=== PATIENT | female | born 1955 | race Caucasian/White ===

== ENCOUNTER 2019-04-18 20:04 | Emergency (ER) | payer MEDICARE ==
[~2019-04-18] VITALS: Ht 147.3 cm; Wt 51.3 kg
[2019-04-18] MEDS ORDERED: ONDANSETRON HCL INJ 2MG/ML 2ML 2 MG/ML VIAL IV ONE (20:18)
[2019-04-18] MEDS ORDERED: SODIUM CHLORIDE 0.9% 1000ML 1,000 ML IV STA (20:18)
[2019-04-18] MEDS ORDERED: PANTOPRAZOLE 40 MG 10ML VIAL IV ONE (20:18)
[2019-04-18] MEDS ORDERED: ONDANSETRON HCL INJ 2MG/ML 2ML 2 MG/ML VIAL ONE (20:27)
[2019-04-18] MEDS ORDERED: DIATRIZOATE MEGL/DIATRIZOA SOD 30 ML BTL PO ONE (20:27)
[2019-04-18 20:40] LABS: BASOPHILS % 0.2 % (0.0-1.0); HEMATOCRIT 37.8 % (34.2-44.1); HEMOGLOBIN 12.9 g/dL (12.0-16.0); LYMPHOCYTES % 6.3 % (18.0-39.1); MEAN CORPUSCULAR HEMOGLOBIN 30.4 pg (28-32); MEAN CORPUSCULAR HGB CONC 34.1 g/dL (31-35); MEAN CORPUSCULAR VOLUME 89.2 fL (81-99); MONOCYTES # (AUTO) 0.4 (0.2-0.8); MONOCYTES % 2.8 % (4.4-11.3); NEUTROPHILS # (AUTO) 14.4 (2.1-6.9); NEUTROPHILS % 90.3 % (38.7-80.0); PLATELET COUNT 340 x10e3/uL (140-360); RED BLOOD COUNT 4.24 x10e6/uL (3.6-5.1); RED CELL DISTRIBUTION WIDTH 12.7 % (11.7-14.4)
[2019-04-18 20:50] LABS: INR 0.96; PROTHROMBIN TIME 13.3 seconds (11.9-14.5)
[2019-04-18 20:58] LABS: AMYLASE 107 U/L (25-125); LIPASE 5 U/L (8-78)
[2019-04-18 21:00] LABS: ALBUMIN 4.3 g/dL (3.5-5.0); ALBUMIN/GLOBULIN RATIO 1.1 (0.8-2.0); ANION GAP 19.2 mmol/L (8-16); CALCIUM 10.8 mg/dL (8.4-10.2); CREATININE, SERUM 1.33 mg/dL (0.57-1.11); POTASSIUM 4.2 mmol/L (3.5-5.1)
[2019-04-18 21:21] LABS: BILIRUBIN,URINE SMALL (NEGATIVE); CLARITY,URINE SL CLOUDY (CLEAR); COLOR,URINE YELLOW (YELLOW); KETONES,URINE 1+ (NEGATIVE); LEUKOCYTE ESTERASE ,URINE NEGATIVE (NEGATIVE); NITRITE,URINE NEGATIVE (NEGATIVE); URINE UROBILINOGEN 0.2 mg/dL (0.2 - 1)
[2019-04-18 21:22] LABS: PROTEIN,URINE DIPSTICK 2+ (NEGATIVE)
--- NOTE | 2019-04-18 21:24 | Diagnostic Imaging Report ---
EXAMINATION: CHEST SINGLE (PORTABLE) INDICATION: ^HURTS TO BREATH ^[id number] ^2034 ^Y COMPARISON: None FINDINGS: AP view TUBES and LINES: None. LUNGS: Lungs are well inflated. There is no evidence of pneumonia or pulmonary edema. PLEURA: No pleural effusion or pneumothorax. HEART AND MEDIASTINUM: The cardiomediastinal silhouette is unremarkable. BONES AND SOFT TISSUES: No acute osseous lesion. Soft tissues are unremarkable. UPPER ABDOMEN: No free air under the diaphragm. IMPRESSION: No acute thoracic abnormality. Signed by: Dr. Phani Lacy MD on 04/18/2019 9:20 PM
[2019-04-18 21:34] LABS: AMORPHOUS SEDIMENT,URINE MODERATE (FEW); BACTERIA,URINE MODERATE /HPF; EPITHELIAL CELLS,URINE MODERATE /LPF
--- NOTE | 2019-04-18 21:50 | Diagnostic Imaging Report ---
EXAM: CT Abdomen and Pelvis WITHOUT contrast INDICATION: ^ABD PAIN/VOMITING S/P COLONOSCOPY THIS AM ^[id number] ^2123 ^Y COMPARISON: None. TECHNIQUE: Abdomen and pelvis were scanned utilizing a multidetector helical scanner from the lung base to the pubic symphysis without administration of IV contrast. Absence of intravenous contrast decreases sensitivity for detection of focal lesions and vascular pathology. Coronal and sagittal reformations were obtained. Routine protocol was performed. IV CONTRAST: None ORAL CONTRAST: None. COMPLICATIONS: None RADIATION DOSE: Total DLP: 209.04 mGy*cm Estimated effective dose: (DLP x 0.015 x size factor) mSv CTDIvol has been reviewed. It is below the limits set by the Radiation Protocol Committee (RPC). FINDINGS: LINES and TUBES: None. LOWER THORAX: Mild mitral valve calcification. Otherwise, unremarkable. HEPATOBILIARY: Unenhanced liver is unremarkable. No biliary ductal dilation. GALLBLADDER: No radio-opaque stones or sludge. No wall thickening. SPLEEN: No splenomegaly. PANCREAS: No focal masses or ductal dilatation. ADRENALS: No adrenal nodules KIDNEYS/URETERS: No hydronephrosis. Limited for evaluation of renal parenchyma without intravenous contrast. No stones. GI TRACT: No abnormal distention, wall thickening, or evidence of bowel obstruction. Hyperdense ingested material limiting gastric fundus and proximal duodenum. Surgical clips is seen within colon at hepatic flexure. Appendix is normal. PELVIC ORGANS/BLADDER: Calcified uterine fibroids. Bladder is collapsed, limiting evaluation. LYMPH NODES: No lymphadenopathy. VESSELS: Mild aortoiliac atherosclerotic disease. PERITONEUM / RETROPERITONEUM: No free air or fluid. BONES: Unremarkable. SOFT TISSUES: Unremarkable. IMPRESSION: 1. No definite evidence of acute inflammatory process in the abdomen/pelvis, considering limitations of unenhanced study. 2. No pneumoperitoneum to suggest bowel perforation. 3. Myomatous uterus. Signed by: Dr. Phani Lacy MD on 04/18/2019 9:47 PM
[2019-04-18] MEDS ORDERED: HYOSCYAMINE SULFATE 0.5 MG/ML INJ IV ONE (22:15)
[2019-04-18] MEDS ORDERED: HYOSCYAMINE 0.125 MG TAB PO ONE (22:30)
[2019-04-18] MEDS ORDERED: PROMETHAZINE HCL (IM) 25 MG/ML VIAL IM ONE (22:45)
[2019-04-18] MEDS ORDERED: MORPHINE SULFATE 2 MG/ML SYR 1ML IV STA (23:04)
[2019-04-19 00:13] VITALS: BP 110/63
== END 2019-04-19 00:31 | disposition home or self-care (01) ==
LOC: ER 20:04
DX: R10.13 Epigastric pain (principal); R11.2 Nausea with vomiting, unspecified; K29.00 Acute gastritis without bleeding
CPT/HCPCS: 36415; 71045; 74176; 80053; 81001; 82150; 82550; 82553; 83690; 84484; 85025; 85610; 85730; 93005; 99283; C9113; J2270; J2405; J2550; J7030

== ENCOUNTER → 2021-01-08 | Day surgery (SDC) | payer OTHER ==
[~2021-01-08] VITALS: Ht 147.3 cm; Wt 54.4 kg
[2021-01-08] VITALS (9 sets, daily range): BP systolic 151–180; BP diastolic 63–81
[~2021-01-08] MED LIST: ALPRAZOLAM 0.5 MG TAB ONE; ATORVASTATIN CA20 MG PO; DIPHENHYDRAMINE HCL 25 MG CAP ONE; ENTRESTO 24 MG1 EACH PO; FENTANYL CITRATE/PF 100MCG/2 ML INJ ONE; HEPARIN SOD/SOD CHLORIDE 2,000 ML ONE; IOPAMIDOL 370 MG/ML 200 ML INFUS..BTL INJ ONE; LEVEMIR FL100 UNIT/1 SC; LIDOCAINE HCL 2% LOCAL 20 ML VIAL ONE; METOPROLOL SUCC25 MG PO; MIDAZOLAM HCL 2 MG/2 ML VIAL ONE; NEURONTIN100 MG PO; SERTRALINE HCL50 MG PO; SODIUM CHLORIDE 0.9% 1000ML 1,000 ML ONE
== END | disposition home or self-care (01) ==
LOC: CATH LAB 14:04
PROVIDERS: ATTEND Internal Medicine Interventional Cardiology
DX: I25.118 Atherosclerotic heart disease of native coronary artery with other forms of angina pectoris (principal); I50.23 Acute on chronic systolic (congestive) heart failure; E11.9 Type 2 diabetes mellitus without complications; Z88.8 Allergy status to other drugs, medicaments and biological substances; Z79.4 Long term (current) use of insulin
CPT/HCPCS: 76937; 93458; 99152; C1887; J2001; J2250; J3010; J7030; Q9967

== ENCOUNTER 2021-10-13 16:23 | Emergency (ER) | payer OTHER ==
[~2021-10-13] VITALS: Ht 147.3 cm; Wt 54.4 kg
[~2021-10-13 16:23] MED LIST changes: -ALPRAZOLAM 0.5 MG TAB ONE; -DIPHENHYDRAMINE HCL 25 MG CAP ONE; -FENTANYL CITRATE/PF 100MCG/2 ML INJ ONE; -HEPARIN SOD/SOD CHLORIDE 2,000 ML ONE; -IOPAMIDOL 370 MG/ML 200 ML INFUS..BTL INJ ONE; -LIDOCAINE HCL 2% LOCAL 20 ML VIAL ONE; -MIDAZOLAM HCL 2 MG/2 ML VIAL ONE; -SODIUM CHLORIDE 0.9% 1000ML 1,000 ML ONE
[2021-10-13] MEDS ORDERED: LACTATED RINGER'S 250 ML INJ STA (16:45)
[2021-10-13] MEDS ORDERED: FAMOTIDINE 20 MG/2 ML VIAL IV NR (16:45)
[2021-10-13] MEDS ORDERED: ONDANSETRON HCL INJ 2MG/ML 2ML 2 MG/ML VIAL IV NR (16:45)
[2021-10-13] MEDS ORDERED: DONNATAL/LIDOCAINE/MAALOX 30 ML SUSP PO NR (17:00)
[2021-10-13 17:43] LABS: BASOPHILS % 0.1 % (0.0-1.0); HEMATOCRIT 42.7 % (34.2-44.1); HEMOGLOBIN 13.5 g/dL (12.0-16.0); LYMPHOCYTES # (AUTO) 0.5 (1.0-3.2); MEAN CORPUSCULAR HEMOGLOBIN 27.4 pg (28-32); MEAN CORPUSCULAR HGB CONC 31.6 g/dL (31-35); MEAN CORPUSCULAR VOLUME 86.6 fL (81-99); MONOCYTES # (AUTO) 0.3 (0.2-0.8); NEUTROPHILS # (AUTO) 8.8 (2.1-6.9); NEUTROPHILS % 91.5 % (38.7-80.0); PLATELET COUNT 239 x10e3/uL (140-360); RED BLOOD COUNT 4.93 x10e6/uL (3.6-5.1)
[2021-10-13 17:49] LABS: CLARITY,URINE SL CLOUDY (CLEAR); COLOR,URINE YELLOW (YELLOW); LEUKOCYTE ESTERASE ,URINE NEGATIVE (NEGATIVE); NITRITE,URINE NEGATIVE (NEGATIVE)
[2021-10-13 17:50] LABS: KETONES,URINE TRACE (NEGATIVE); PROTEIN,URINE DIPSTICK >=300 (NEGATIVE); URINE UROBILINOGEN 0.2 mg/dL (0.2 - 1)
[2021-10-13 17:55] LABS: BACTERIA,URINE MODERATE /HPF; EPITHELIAL CELLS,URINE MODERATE /LPF; WBC,URINE (MAN) 0-5 /HPF (0-5)
[2021-10-13 17:56] LABS: HYALINE CASTS 0-1 (0-1); MUCUS,URINE FEW (RARE); TRANSITIONAL EPI CELLS,URINE FEW
[2021-10-13] MEDS ORDERED: METOCLOPRAMIDE HCL 10 MG/2ML VIAL IV ONE (18:15)
[2021-10-13 18:24] LABS: ALBUMIN 3.4 g/dL (3.5-5.0); ANION GAP 17.6 mmol/L (8-16); CALCIUM 9.1 mg/dL (8.4-10.2); CREATININE, SERUM 2.74 mg/dL (0.57-1.11); POTASSIUM 3.6 mmol/L (3.5-5.1)
[2021-10-13] MEDS ORDERED: ONDANSETRON ODT4 MG PO (19:35)
== END 2021-10-13 19:35 | disposition home or self-care (01) ==
LOC: ER 16:26
DX: R11.2 Nausea with vomiting, unspecified (principal); N18.9 Chronic kidney disease, unspecified; E11.65 Type 2 diabetes mellitus with hyperglycemia; I50.9 Heart failure, unspecified; R10.9 Unspecified abdominal pain; I10 Essential (primary) hypertension; E78.5 Hyperlipidemia, unspecified; K21.9 Gastro-esophageal reflux disease without esophagitis; R94.31 Abnormal electrocardiogram [ECG] [EKG]
CPT/HCPCS: 36415; 80053; 81001; 83690; 83880; 84484; 85025; 93005; 99284; J2405; J2765; J7121

== ENCOUNTER 2022-09-14 12:19 | Inpatient (IN) | payer OTHER ==
[~2022-09-14] VITALS: Ht 147.3 cm; Wt 51.3 kg
[~2022-09-14 12:19] MED LIST changes: +BUMETANIDE1 MG PO; +IMODIUM2 MG PO; +LYRICA75 MG PO; +METOLAZONE5 MG PO; +ONDANSETRON ODT4 MG PO; +VUMERITY231 MG
[2022-09-14 14:47] LABS: BASOPHILS % 0.2 % (0.0-1.0); HEMATOCRIT 48.7 % (34.2-44.1); HEMOGLOBIN 15.9 g/dL (12.0-16.0); LYMPHOCYTES # (AUTO) 0.4 (1.0-3.2); LYMPHOCYTES % 3.4 % (18.0-39.1); MEAN CORPUSCULAR HEMOGLOBIN 26.4 pg (28-32); MEAN CORPUSCULAR HGB CONC 32.6 g/dL (31-35); MEAN CORPUSCULAR VOLUME 80.9 fL (81-99); MONOCYTES # (AUTO) 0.8 (0.2-0.8); MONOCYTES % 7.1 % (4.4-11.3); NEUTROPHILS # (AUTO) 10.3 (2.1-6.9); NEUTROPHILS % 88.6 % (38.7-80.0); PLATELET COUNT 193 x10e3/uL (140-360); RED BLOOD COUNT 6.02 x10e6/uL (3.6-5.1); RED CELL DISTRIBUTION WIDTH 19.3 % (11.7-14.4)
[2022-09-14 14:58] LABS: INR 1.16
[2022-09-14 14:59] LABS: PARTIAL THROMBOPLASTIN TIME 26.8 seconds (23.8-35.5)
[2022-09-14 15:04] LABS: ALBUMIN 3.2 g/dL (3.5-5.0); ALBUMIN/GLOBULIN RATIO 0.9 (0.8-2.0); ALKALINE PHOSPHATASE 144 IU/L (40-150); ANION GAP 22.1 mmol/L (8-16); BLOOD UREA NITROGEN 86 mg/dL (7-26); BUN/CREATININE RATIO 23 (6-25); CALCIUM 9.1 mg/dL (8.4-10.2); CARBON DIOXIDE 25 mmol/L (22-29); CHLORIDE 97 mmol/L (98-107); CREATINE KINASE 133 IU/L (29-168); CREATININE, SERUM 3.82 mg/dL (0.57-1.11); GLUCOSE 140 mg/dL (74-118); POTASSIUM 4.1 mmol/L (3.5-5.1); SODIUM 140 mmol/L (136-145)
[2022-09-14 15:22] LABS: ALANINE AMINOTRANSFERASE < 6 IU/L (0-55)
[2022-09-14 16:17] LABS: CLARITY,URINE CLEAR (CLEAR); COLOR,URINE YELLOW (YELLOW)
[2022-09-14 16:18] LABS: KETONES,URINE NEGATIVE (NEGATIVE); LEUKOCYTE ESTERASE ,URINE NEGATIVE (NEGATIVE); NITRITE,URINE NEGATIVE (NEGATIVE); PROTEIN,URINE DIPSTICK >=300 (NEGATIVE); URINE UROBILINOGEN 0.2 mg/dL (0.2 - 1)
[2022-09-14] MEDS: ONDANSETRON HCL INJ 2MG/ML 2ML 2 MG/ML VIAL IV PRN (16:25)
[2022-09-14 16:26] LABS: AMORPHOUS SEDIMENT,URINE MODERATE (FEW); BACTERIA,URINE FEW /HPF; EPITHELIAL CELLS,URINE FEW /LPF; HYALINE CASTS 0-1 (0-1); RBC,URINE 0-5 /HPF (0-5); WBC,URINE (MAN) 0-5 /HPF (0-5)
[2022-09-14] MEDS ORDERED: FUROSEMIDE INJ 10 MG/ML 4 ML VIAL IV ONE (17:30)
[2022-09-14 20:39] LABS: CREATINE KINASE MB 4.4 ng/mL (0-5.0)
[2022-09-15] VITALS (7 sets, daily range): BP systolic 122–148; BP diastolic 31–83
[2022-09-15 02:12] LABS: CREATINE KINASE MB 3.9 ng/mL (0-5.0)
[2022-09-15 06:31] LABS: BASOPHILS % 0.2 % (0.0-1.0); EOSINOPHILS % 0.1 % (0.0-6.0); HEMATOCRIT 41.8 % (34.2-44.1); HEMOGLOBIN 15.2 g/dL (12.0-16.0); LYMPHOCYTES # (AUTO) 0.4 (1.0-3.2); LYMPHOCYTES % 3.7 % (18.0-39.1); MEAN CORPUSCULAR HEMOGLOBIN 30.3 pg (28-32); MEAN CORPUSCULAR HGB CONC 36.4 g/dL (31-35); MEAN CORPUSCULAR VOLUME 83.3 fL (81-99); MONOCYTES # (AUTO) 0.9 (0.2-0.8); MONOCYTES % 7.1 % (4.4-11.3); NEUTROPHILS # (AUTO) 10.7 (2.1-6.9); NEUTROPHILS % 88.4 % (38.7-80.0); PLATELET COUNT 175 x10e3/uL (140-360); RED BLOOD COUNT 5.02 x10e6/uL (3.6-5.1); RED CELL DISTRIBUTION WIDTH 23.3 % (11.7-14.4)
[2022-09-15 06:54] LABS: ALBUMIN 2.4 g/dL (3.5-5.0); ALBUMIN/GLOBULIN RATIO 0.8 (0.8-2.0); ALKALINE PHOSPHATASE 114 IU/L (40-150); ANION GAP 18.6 mmol/L (8-16); BLOOD UREA NITROGEN 92 mg/dL (7-26); BUN/CREATININE RATIO 25 (6-25); CALCIUM 8.5 mg/dL (8.4-10.2); CARBON DIOXIDE 26 mmol/L (22-29); CHLORIDE 98 mmol/L (98-107); GLUCOSE 108 mg/dL (74-118); POTASSIUM 3.6 mmol/L (3.5-5.1); SODIUM 139 mmol/L (136-145)
[2022-09-15 06:55] LABS: ALANINE AMINOTRANSFERASE < 6 IU/L (0-55)
[2022-09-15] MEDS ORDERED: DEXTROSE 50% SYRINGE 50 ML IV PRN (08:30)
[2022-09-15] MEDS ORDERED: FUROSEMIDE INJ 10 MG/ML 4 ML VIAL IV SCH (09:00)
[2022-09-15] MEDS ORDERED: PREGABALIN 75 MG CAP PO SCH (09:00)
[2022-09-15 09:40] LABS: CREATINE KINASE MB 4.8 ng/mL (0-5.0)
[2022-09-15] MEDS ORDERED: EPOETIN ALFA-EPBX 10,000 UNIT/ML VIAL SC ONE (10:30)
[2022-09-15] MEDS ORDERED: IRON SUCROSE 100 MG in SODIUM CHLORIDE 0.9% 100 ML IV SCH (10:30)
[2022-09-15 10:41] LABS: % IRON SATURATION 17 % (15-50); IRON 49 ug/dL (50-170); TOTAL IRON BINDING CAPACITY 287 ug/dL (261-478); TRANSFERRIN 205 mg/dL (180-382)
[2022-09-15] MEDS: METOPROLOL SUCCINATE 25 MG TAB XL PO SCH (10:58)
[2022-09-15] MEDS: SERTRALINE HCL 50 MG TAB PO SCH (10:58)
[2022-09-15] MEDS: INSULIN LISPRO 100 UNIT/1 ML 3ML VIAL SQ SCH ×3 (11:28→21:50)
[2022-09-15] MEDS: ONDANSETRON HCL INJ 2MG/ML 2ML 2 MG/ML VIAL IV PRN (21:41)
[2022-09-15] MEDS: BUMETANIDE INJ 0.25MG/ML 4ML VIAL IV SCH (21:41)
[2022-09-16] VITALS (7 sets, daily range): BP systolic 101–129; BP diastolic 73–82
[2022-09-16] MEDS: ONDANSETRON HCL INJ 2MG/ML 2ML 2 MG/ML VIAL IV PRN ×3 (01:26→15:18)
[2022-09-16 05:23] LABS: ANION GAP 17.3 mmol/L (8-16); CALCIUM 8.1 mg/dL (8.4-10.2); CREATININE, SERUM 3.63 mg/dL (0.57-1.11); POTASSIUM 3.3 mmol/L (3.5-5.1)
[2022-09-16] MEDS: INSULIN LISPRO 100 UNIT/1 ML 3ML VIAL SQ SCH ×5 (07:30→22:46)
[2022-09-16] MEDS: BUMETANIDE INJ 0.25MG/ML 4ML VIAL IV SCH ×2 (08:35→21:56)
[2022-09-16] MEDS: SERTRALINE HCL 50 MG TAB PO SCH (08:35)
[2022-09-16] MEDS: METOPROLOL SUCCINATE 25 MG TAB XL PO SCH (08:35)
[2022-09-16] MEDS ORDERED: SIMETHICONE 80 MG CHEW PO PRN (13:30)
[2022-09-16] MEDS ORDERED: MAGNESIUM/ALUMINUM/SIMETHICONE 30 ML UDC PO PRN (13:30)
[2022-09-16] MEDS ORDERED: IOPAMIDOL 370 MG/ML 100 ML INFUS..BTL INJ ONE (15:12)
[2022-09-17] VITALS (7 sets, daily range): BP systolic 89–111; BP diastolic 73–80
[2022-09-17 04:37] LABS: BASOPHILS % 0.1 % (0.0-1.0); HEMATOCRIT 41.8 % (34.2-44.1); HEMOGLOBIN 13.8 g/dL (12.0-16.0); LYMPHOCYTES # (AUTO) 0.3 (1.0-3.2); LYMPHOCYTES % 2.8 % (18.0-39.1); MEAN CORPUSCULAR HEMOGLOBIN 26.7 pg (28-32); MEAN CORPUSCULAR VOLUME 80.9 fL (81-99); MONOCYTES # (AUTO) 0.7 (0.2-0.8); MONOCYTES % 6.9 % (4.4-11.3); NEUTROPHILS # (AUTO) 9.1 (2.1-6.9); NEUTROPHILS % 89.7 % (38.7-80.0); PLATELET COUNT 133 x10e3/uL (140-360); RED BLOOD COUNT 5.17 x10e6/uL (3.6-5.1); RED CELL DISTRIBUTION WIDTH 17.9 % (11.7-14.4)
[2022-09-17 04:49] LABS: ANION GAP 14.8 mmol/L (8-16); CALCIUM 7.6 mg/dL (8.4-10.2); CREATININE, SERUM 3.53 mg/dL (0.57-1.11)
[2022-09-17 04:50] LABS: POTASSIUM 2.8 mmol/L (3.5-5.1)
[2022-09-17] MEDS ORDERED: POTASSIUM CHLORIDE 20MEQ/100ML 100 ML IV ONE (05:00)
[2022-09-17] MEDS ORDERED: SODIUM CHLORIDE 0.9% 250ML 250 ML ONE ×2 (05:39→13:09)
[2022-09-17] MEDS: METOPROLOL SUCCINATE 25 MG TAB XL PO SCH (10:47)
[2022-09-17] MEDS: SERTRALINE HCL 50 MG TAB PO SCH (10:48)
[2022-09-17] MEDS: BUMETANIDE INJ 0.25MG/ML 4ML VIAL IV SCH ×2 (10:50→20:45)
[2022-09-17] MEDS: INSULIN LISPRO 100 UNIT/1 ML 3ML VIAL SQ SCH ×3 (12:02→20:45)
[2022-09-17] MEDS: POTASSIUM CHLORIDE 20MEQ/100ML 100 ML IV SCH ×2 (12:52→15:51)
[2022-09-17] MEDS: ONDANSETRON HCL INJ 2MG/ML 2ML 2 MG/ML VIAL IV PRN (14:07)
[2022-09-17] MEDS ORDERED: FLUCONAZOLE 200 MG/100 ML 100 ML IV ONE (18:30)
[2022-09-17] MEDS: DEXTROSE 5%/0.45% SOD CHL 1,000 ML IV SCH (18:45)
[2022-09-17] MEDS: METOCLOPRAMIDE HCL 10 MG/2ML VIAL IV SCH (20:44)
[2022-09-18 00:43] VITALS: BP 112/79
[2022-09-18 05:28] LABS: ALBUMIN 2.1 g/dL (3.5-5.0); ALBUMIN/GLOBULIN RATIO 0.8 (0.8-2.0); ALKALINE PHOSPHATASE 94 IU/L (40-150); ANION GAP 13.6 mmol/L (8-16); BLOOD UREA NITROGEN 79 mg/dL (7-26); BUN/CREATININE RATIO 22 (6-25); CALCIUM 7.7 mg/dL (8.4-10.2); CARBON DIOXIDE 27 mmol/L (22-29); CHLORIDE 100 mmol/L (98-107); CREATININE, SERUM 3.64 mg/dL (0.57-1.11); GLUCOSE 328 mg/dL (74-118); MAGNESIUM 2.2 MG/DL (1.3-2.1); POTASSIUM 3.6 mmol/L (3.5-5.1); SODIUM 137 mmol/L (136-145)
[2022-09-18 05:44] LABS: ALANINE AMINOTRANSFERASE < 6 IU/L (0-55)
[2022-09-18 05:59] VITALS: BP 131/83
[2022-09-18 08:13] VITALS: BP 121/80
[2022-09-18] MEDS: INSULIN LISPRO 100 UNIT/1 ML 3ML VIAL SQ SCH ×4 (08:45→21:00)
[2022-09-18 09:00] VITALS: BP 121/80
[2022-09-18] MEDS: METOCLOPRAMIDE HCL 10 MG/2ML VIAL IV SCH ×4 (09:56→21:15)
[2022-09-18] MEDS: BUMETANIDE INJ 0.25MG/ML 4ML VIAL IV SCH ×2 (09:56→21:15)
[2022-09-18] MEDS: METOPROLOL SUCCINATE 25 MG TAB XL PO SCH (09:57)
[2022-09-18] MEDS: SERTRALINE HCL 50 MG TAB PO SCH (09:57)
[2022-09-18] MEDS: SUCRALFATE 1 GM TAB PO SCH ×4 (09:57→21:15)
[2022-09-18 12:25] VITALS: BP 122/79
[2022-09-18] MEDS: DEXTROSE 5%/0.45% SOD CHL 1,000 ML IV SCH (14:31)
[2022-09-18 20:00] VITALS: BP 110/72
[2022-09-19] VITALS (7 sets, daily range): BP systolic 97–125; BP diastolic 64–72
[2022-09-19] MEDS: INSULIN LISPRO 100 UNIT/1 ML 3ML VIAL SQ SCH ×4 (09:30→20:54)
[2022-09-19] MEDS: METOCLOPRAMIDE HCL 10 MG/2ML VIAL IV SCH ×4 (09:46→20:54)
[2022-09-19] MEDS: BUMETANIDE INJ 0.25MG/ML 4ML VIAL IV SCH (09:46)
[2022-09-19] MEDS: SUCRALFATE 1 GM TAB PO SCH ×4 (09:47→20:53)
[2022-09-19] MEDS: SERTRALINE HCL 50 MG TAB PO SCH (09:47)
[2022-09-19] MEDS: METOPROLOL SUCCINATE 25 MG TAB XL PO SCH (09:47)
[2022-09-19] MEDS: DEXTROSE 5%/0.45% SOD CHL 1,000 ML IV SCH (09:49)
[2022-09-19] MEDS: BUMETANIDE 1 MG TAB PO SCH (20:54)
[2022-09-20] VITALS: BP 119/66
[2022-09-20] MEDS ORDERED: DIPHENOXYLATE/ATROPINE TAB PO ONE (00:15)
[2022-09-20 04:37] VITALS: BP 119/66
[2022-09-20 06:12] VITALS: BP 110/58
[2022-09-20 08:00] VITALS: BP 115/60
[2022-09-20 08:50] VITALS: BP 115/60
[2022-09-20] MEDS: INSULIN LISPRO 100 UNIT/1 ML 3ML VIAL SQ SCH ×2 (09:06→11:30)
[2022-09-20] MEDS: SUCRALFATE 1 GM TAB PO SCH (09:07)
[2022-09-20] MEDS: METOPROLOL SUCCINATE 25 MG TAB XL PO SCH (09:07)
[2022-09-20] MEDS: SERTRALINE HCL 50 MG TAB PO SCH (09:07)
[2022-09-20] MEDS: BUMETANIDE 1 MG TAB PO SCH (09:07)
[2022-09-20] MEDS: METOCLOPRAMIDE HCL 10 MG/2ML VIAL IV SCH (09:08)
[2022-09-20 12:22] VITALS: BP 106/58
== END 2022-09-20 15:16 | disposition home or self-care (01) | DRG 291 ==
LOC: ER 13:36 → ERHOLD 17:32 → MED/SURG 09-15 08:45
PROVIDERS: ADMIT Internal Medicine; ATTEND Internal Medicine
DX: I13.2 Hypertensive heart and chronic kidney disease with heart failure and with stage 5 chronic kidney disease, or end stage renal disease (principal); I50.23 Acute on chronic systolic (congestive) heart failure; N18.6 End stage renal disease; N17.9 Acute kidney failure, unspecified; E11.22 Type 2 diabetes mellitus with diabetic chronic kidney disease; Z99.2 Dependence on renal dialysis; R62.7 Adult failure to thrive; E11.40 Type 2 diabetes mellitus with diabetic neuropathy, unspecified; E78.5 Hyperlipidemia, unspecified; K21.9 Gastro-esophageal reflux disease without esophagitis; F32.A Depression, unspecified; I44.7 Left bundle-branch block, unspecified; E11.21 Type 2 diabetes mellitus with diabetic nephropathy; R33.9 Retention of urine, unspecified; Z20.822 Contact with and (suspected) exposure to COVID-19; Z68.23 Body mass index [BMI] 23.0-23.9, adult
CPT/HCPCS: 31500; 36415; 36600; 51700; 71045; 74177; 80048; 80053; 81001; 82140; 82550; 82553; 82728; 82948; 83540; 83735; 83880; 84466; 84484; 85025; 85610; 85730; 87086; 93005; 93306; 94799; 96372; 99252; 99284; J1450; J1940; J2405; J2765; J3480; J7050; Q9967